=== PATIENT | male | born 1960 | race Caucasian/White ===

== ENCOUNTER 2017-03-10 21:25 | Emergency (ER) | payer MEDICARE, BC ==
[~2017-03-10] VITALS: Ht 175.3 cm; Wt 100.0 kg
[~2017-03-10 21:25] MED LIST: ASPI81TA11 PO; BACT800T5 PO; CLOP75TA PO; CORE25TA PO; DARU1TAB PO; EMTR1TAB4 PO; ENAL10TA7 PO; ERGO50000 PO; HYDR-3533 PO; NEUR600T PO; PRAM0.5T PO; SPIR50 PO; THERTAB56 PO; VALA1TAB PO; WALKMIS6 XX; [UNRECOGNIZED DRUG - CODE] PO
[2017-03-10 21:29] VITALS: BP 122/77; PULSE 79; RESP 16; TEMP 97.6; O2SAT 98
== END 2017-03-11 00:09 | disposition left against medical advice (07) ==
LOC: NED 21:25
DX: R06.02 Shortness of breath (principal)
CPT/HCPCS: 99281